=== PATIENT | male | born 1975 | race Two or more races ===

== ENCOUNTER 2023-06-29 18:16 | Emergency (ER) | payer OTHER ==
[~2023-06-29] VITALS: Ht 177.8 cm; Wt 111.1 kg
[2023-06-29] MEDS ORDERED: HYDROCHLOROTHIA25 MG PO (19:07)
[2023-06-29] MEDS ORDERED: LISINOPRIL40 MG PO (19:07)
[2023-06-29] MEDS ORDERED: HORIZANT300 MG PO (19:08)
[2023-06-29] MEDS ORDERED: LEVOTHYROXINE13 MCG PO (19:08)
[2023-06-29] MEDS ORDERED: VITAMIN D21250 MCG PO (19:08)
[2023-06-29] MEDS ORDERED: AMLODIPINE-OLM1 EAC2 PO (19:08)
[2023-06-29] MEDS ORDERED: KETO10TA2 PO (21:18)
[2023-06-29] MEDS ORDERED: CIPRO500 MG PO (21:18)
== END 2023-06-29 21:44 | disposition home or self-care (01) ==
LOC: ER 18:17
DX: S61.325A Laceration with foreign body of left ring finger with damage to nail, initial encounter (principal); W45.8XXA Other foreign body or object entering through skin, initial encounter; W22.8XXA Striking against or struck by other objects, initial encounter; Y93.89 Activity, other specified; Y92.89 Other specified places as the place of occurrence of the external cause; I10 Essential (primary) hypertension; E03.9 Hypothyroidism, unspecified; S62.665A Nondisplaced fracture of distal phalanx of left ring finger, initial encounter for closed fracture